=== PATIENT | male | born 1950 | race Caucasian/White ===

== ENCOUNTER 2021-06-04 12:05 | Inpatient (IN) ==
[2021-06-04 12:53] LABS: Basophils # (auto) 0.01 K/uL (0-0.2); Basophils % (auto) 0.1 %; Eosinophils # (auto) 0.05 K/uL (0-0.5); Eosinophils % (auto) 0.7 %; Hematocrit (blood only) 42.1 % (42-52); Immature Granulocytes # (auto) 0.01 K/uL (0.00-0.02); Immature Granulocytes % (auto) 0.1 %; Lymphocytes # (auto) 0.71 K/uL (1.2-3.4); Lymphocytes % (auto) 9.6 %; Mean Corpuscular Hemoglobin 32.6 pg (25-34); Mean Corpuscular Hgb Conc 35.6 g/dL (32-36); Mean Corpuscular Volume 91.5 fL (80-100); Mean Platelet Volume 9.7 fL (7.4-10.4); Monocytes # (auto) 0.79 K/uL (0.11-0.59); Monocytes % (auto) 10.7 %; Neutrophils # (auto) 5.81 K/uL (1.4-6.5); Neutrophils % (auto) 78.8 %; Platelet Count 313 K/uL (130-400); RDW Coefficient of Variation 12.2 % (11.5-14.5); RDW Standard Deviation 41.2 fL (36.4-46.3); White Blood Count 7.38 K/uL (4.8-10.8)
--- NOTE | 2021-06-04 12:57 | XRay Report ---
XR chest 1V portable HISTORY: 71 years-old Male Sepsis acute sepsis COMPARISON: None TECHNIQUE: Portable AP view of the chest FINDINGS: The cardiomediastinal and hilar silhouettes are within normal limits. Mild right hemidiaphragmatic el evation. No pneumothorax, pleural effusion or overt pulmonary edema. Interstitial coarsening with ill -defined bilateral airspace opacities. Degenerative changes of the shoulders and spine. IMPRESSION: Ill-defined peripheral bilateral airspace opacities are suggestive of an infectious or in flammatory process such as viral pneumonia. ACT 112: Negative or not required by law. The above report was generated using voice recognition software. It may contain grammatical, syntax o r spelling errors. Electronically signed by: Delvin Penn M.D. 06/04/2021 12:55 PM
[2021-06-04 12:59] LABS: INR 1.2 (0.9-1.1); Partial Thromboplastin Ratio 1.4; Partial Thromboplastin Time 37.9 Seconds (21.0-31.0); Prothrombin Time 12.9 Seconds (9.0-12.0)
[2021-06-04 13:03] LABS: Troponin I 0.03 ng/ml (0-0.04)
[2021-06-04] MEDS ORDERED: SODIUM CHLORIDE 0.9% 1000ML 500 ML IV ONE (13:18)
[2021-06-04 13:25] LABS: Albumin Level 3.5 gm/dl (3.4-5.0); BUN Creatinine Ratio 29.6 (10-20); Bilirubin,Total 1.1 mg/dl (0.2-1.0); Creatinine Clr Calc Pharmacy 87.8 ml/min; Est GFR (African American) 102.9 ml/min; Est GFR (Non-African American) 88.8 ml/min; Globulin 3.4 gm/dl (2.5-4.0); Potassium 3.8 mmol/L (3.5-5.1); Total Protein 6.9 gm/dl (6.0-8.3)
[2021-06-04] MEDS ORDERED: SODIUM CHLORIDE 0.9% 1000ML 1,000 ML IV SCH (13:30)
--- NOTE | 2021-06-04 14:09 | CT Scan Report ---
CT head/brain wo con CLINICAL HISTORY: 71 years-old Male with AMS. Acutely altered mental status TECHNIQUE: Multiple axial CT images of the head were obtained without contrast. A dose lowering tech nique was utilized adhering to the principles of ALARA. CT DOSE: 614.27 mGy.cm COMPARISON: None. FINDINGS: No acute intracranial hemorrhage, midline shift, intracranial mass, hydrocephalus, territorial ischem ia or abnormal extra-axial collection. Age-related involutional changes. White matter hypodensities s uggest chronic microvascular ischemic disease. Chronic appearing lacunar infarct of the lanier radiat a right frontal lobe with extension into the superior right lentiform nucleus. Cerebral vascular calc ifications. The calvarium is intact. The mastoid air cells are clear. Minimal mucosal thickening of the paranasa l sinuses. Unremarkable soft tissues and orbits. IMPRESSION: 1. No acute intracranial abnormality. 2. Age-related involutional changes with chronic microvascular ischemic disease. 3. Chronic appearing lacunar infarcts of the basal ganglia and right frontal lobe lanier radiata. ACT 112: Negative or not required by law. The above report was generated using voice recognition software. It may contain grammatical, syntax o r spelling errors. Electronically signed by: Delvin Penn M.D. 06/04/2021 2:08 PM
[2021-06-04 14:18] LABS: Influenza A virus by PCR Negative (Neg); Influenza B virus by PCR Negative (Neg); RSV by PCR Negative (Neg)
[2021-06-04 14:32] LABS: SARS CoV2 RNA(COVID-19) InHosp POSITIVE (Negative)
[2021-06-04 16:00] LABS: Appearance Urine Clear (Clear); Bacteria Urine Automated Negative (Negative); Blood Urine Negative (Negative); Color Urine Dark Yellow; Glucose Urine UA Negative (Negative); Ketones Urine Negative (Negative); Leukocyte Esterase Urine Negative (Negative); Nitrite Urine Negative (Negative); Protein Urine Trace (Negative); RBC Urine Automated 0-4 /hpf (0-4); Specific Gravity Urine 1.031 (1.000-1.030); Urobilinogen Urine Positive (Negative); pH Urine 5.5 (4.5-7.5)
[2021-06-04 16:07] LABS: Bilirubin Urine 1+ (Negative)
--- NOTE | 2021-06-04 16:35 | History & Physical Report ---
Date of Service June 04, 2021 Assessment & Plan (1) Confusion: Plan: Ongoing for a few months per daughter. Patient says he feels "off" and fatigued, but otherwise cannot pinpoint symptoms. Ddx includes Covid-related encephalopathy vs. metabolic/nutritional encephalopathy vs. dementia vs. other. 1) Will get B1, folate, B12, other electrolytes 2) MRI brain (2) COVID-19: Plan: Unknown when infected. Family had it >2 months prior per daughter, and no known present contacts. Patient had increased cough recently and was at [facility] on 06/01. CXR indicates viral pneumonia. - Presently on room air, so does not qualify for steroids, remdesivir, or other treatments - Hold doxycycline as I do not think bacterial pneumonia is playing a role - Isolation precautions (3) Transaminitis: Plan: Mild. AST/ALT were 86/101 on admission. Consistent with a mild viral hepatitis from Covid. - Trend - Consider RUQ u/s if they rise appreciably. (4) Falls: Plan: Falls increasing over last 2 months. Per patient, no prodrome symptoms and no loss of consciousness. Simply more tripping over himself. - B12 as above - PT/OT (5) Pulmonary embolism: Plan: Confusing picture where patient reports workplace fume exposure caused a "blood clot in lungs" in 1985. Per patient, has been on ASA, dipyridamole, and statin ever since. - Continue all 3 for now (6) CVA (cerebral vascular accident): Plan: Again, unclear picture where patient reports blood clot in lungs "went to brain" and caused stroke. No records available to us. - Continue above meds (7) Depression: Plan: - Continue amitriptyline (8) DVT prophylaxis: Plan: Lovenox 40 mg SQ daily History of Present Illness Primary Care Provider: Debra Paulino MD 71yo M w/ hx of depression, PE (reportedly from fume exposure at work?), and stroke who presents with confusion and failure to thrive at home. Per the patient and daughter, he has been having an increasingly difficult time at home. For at least 1-2 months, he has been stumbling more, having trouble remember where he is and what day it is, and having a fair number of falls. Per the daughter, he has had several falls, including one about 2 months ago where he struck his head and had a large bruise over his left eye. He also admits to a few other falls at home, but denies otherwise striking his head. He denies any loss of consciousness during these falls. He does not have any prodrome (lightheadedness, dizziness, shortness of breath) before the falls, and reports they are mechanical in nature with him catching his foot when turning. He was brought in because his daughter feels his confusion is getting significantly worse. He is forgetting things like what day it is, when his birthday is, etc. Per daughter, her family had Covid several months ago. He was not known to have caught it at that time. He has been coughing more recently and went to [place] on 06/01 and was given doxycycline and Tessalon Perles for a pneumonia. Allergies Allergy/AdvReac Type Severity Reaction Status Date / Time No Known Allergies Allergy Unverified 06/04/21 14:39 Home Medications Medication Instructions Recorded Confirmed Type amitriptyline 50 mg tablet 50 mg PO DIRECTED 06/04/21 06/04/21 History aspirin 81 mg tablet,delayed 81 mg PO QAM 06/04/21 06/04/21 History release (Aspirin Low Dose) atorvastatin 40 mg tablet 40 mg PO QAM 06/04/21 06/04/21 History benzonatate 100 mg capsule 100 mg PO DIRECTED 06/04/21 06/04/21 History dipyridamole 50 mg tablet 50 mg PO DIRECTED 06/04/21 06/04/21 History doxycycline hyclate 100 mg capsule 100 mg PO DIRECTED 06/04/21 06/04/21 History Past Med/Surg History Medical History Depression Pulmonary embolism In 1985 due to workplace fume exopsure? Family History Father Heart disease Social History Smoking Status: Never smoker Feels Safe at Home: Yes Review of Systems Review of Systems: All systems reviewed & are unremarkable except as noted in HPI & below Physical Exam Constitutional: WD/WN, vitals as above Eyes: EOM intact bilaterally; no conjunctival abnormality ENMT: external ear and nose normal, oropharynx normal Neck: trachea midline, no thyromegaly normal visual inspection Respiratory: normal respiratory effort, lungs clear to auscultation no respiratory distress Cardiovascular: RRR, no murmur, no edema Gastrointestinal (Abdomen): Inspection/Auscultation: abdomen normal to inspection; abdomen not distended Musculoskeletal: no cyanosis or clubbing, extremities motor strength 5/5 Skin: no rashes, warm and dry Neurologic: moves all extremities and awake Motor/Sensory: no tremor, normal movement, no fasciculations and no sensory deficit (Light touch intact) Psychiatric: Orientation: alert, oriented to person and cooperative Results & Data Results & Data ([facility]) Vital Signs (Past 12 Hours) Vital Signs Temp Pulse Pulse Resp BP BP Pulse Ox 06/04/21 15:42 78 20 152/78 H 94 06/04/21 12:30 79 20 133/79 98 06/04/21 12:07 36.5 C 91 H 18 123/72 94 Code Status & VTE Plan VTE Prophylaxis Plan VTE Prophylaxis will be ordered: Yes PG Care Time/CCT Total # of Minutes Spent Total Time Spent with Patient: Total time spent is greater than 50% in coordination of care (as documented) at patient's floor/unit and/or counseling patient: Coding Level of Care Code 72808 Initial Inpt Care Lvl 3 Diagnoses Confusion R41.0 COVID-19 U07.1 Falls W19.XXXA CVA (cerebral vascular accident) I63.9 Pulmonary embolism I26.99 Depression F32.A DVT prophylaxis Z29.9 Transaminitis R74.01
[2021-06-04 17:49] LABS: Folate (Folic Acid) 11.39 ng/ml (>5.38)
[2021-06-04] MEDS ORDERED: ACETAMINOPHEN 325 MG TAB PO PRN (19:50)
[2021-06-04] MEDS ORDERED: ONDANSETRON INJ 2 MG/ML 2 ML VIAL IV PRN (19:50)
--- NOTE | 2021-06-04 20:40 | Emergency Department Note ---
Impression & Plan Confusion, COVID-19, Acute dehydration ED Provider Note CHIEF COMPLAINT: Fatigue, periodic confusion, weakness HISTORY OF PRESENT ILLNESS: This 71-year-old male patient presents to the emergency department presents emergency department with complaints of fatigue, weakness and periodic confusion per his daughter. He has been in bed for the last several days but states symptoms began several weeks ago. Daughter states today is his birthday and he has asked several times why people were singing happy birthday to him. Daughter states she brought him a strawberry milkshake as requested and he asked if it was chocolate. She thought this was unusual. This is not his baseline mental status. Patient is not Covid vaccinated. Several people in his home did have an upper respiratory infection few weeks ago. Patient denies any fevers, vomiting but states he is just not feeling right. His physician is at the [facility] and his primary hospital is at [facility]. REVIEW OF SYSTEMS: A review of systems was performed with positives and pertinent negatives listed in the history of present illness. 10 systems were reviewed and are otherwise negative. ALLERGIES: see below MEDICATIONS: see below PMH: see below SOCIAL HISTORY: see below DDx: Infection, dehydration, metabolic abnormality, hypo/hyperglycemia, electrolyte disturbance, anemia, hypoxia, cardiac sources, intracerebral event, toxicologic, neurologic, as well as other pathologies. PHYSICAL EXAM: Vital signs reviewed. General: somewhat ill appearing 71 yo male, in no significant distress. HEENT: No scleral icterus, PERRLA, neck supple. Dry mucous membranes. Cardiovascular: Regular rate and rhythm, no extra sounds. Pulmonary: Clear to auscultation bilaterally, normal work of breathing. Abdomen: Soft, nontender, nondistended, positive bowel sounds. Musculoskeletal: Atraumatic, no peripheral edema. Neurologic: Patient awake alert and answering questions appropriately. Somewhat slower to respond. Skin: Warm, dry, no rash EMERGENCY DEPARTMENT COURSE/MDM: This patient was evaluated and appeared to be in no significant distress. IV access was obtained and laboratory work was drawn. Patient was placed on potline monitor noted to be in a normal sinus rhythm. Patient is clinically dry and was hydrated with normal saline solution. Patient's laboratory work is fairly reassuring however he does have a positive Covid test. CT imaging of the head was performed and reveals chronic infarct. It is difficult to determine if the patient's presentation is consistent with a Covid fog versus subacute versus acute CVA. Patient's case was discussed with the hospitalist service who will evaluate the patient for admission and further management. MONITORING: An order for cardiac monitoring was placed and the patient is noted to be in a NSR at 79 beats per minute. RADIOLOGY: see below EKG: NSR at 91 bpm. Incomplete right bundle branch block, nonspecific ST and T wave abnormalities with poor quality baseline for interpretation. Normal QTC. No PVC, no PAC. DISPOSITION: admission Past Med/Surg History Medical History Depression Pulmonary embolism In 1985 due to workplace fume exopsure? Family History Father Heart disease Social History Smoking Status: Never smoker Hx Alcohol Use: No Hx Substance Use: No Preferred Language: Turkmen Communication Ability: Effective Meter Maintenance Person Required: No Beliefs That Will Affect Care: None Current Living Situation: Alone Feels Safe at Home: Yes Assistive Devices: Glasses Allergies Allergies Allergy/AdvReac Type Severity Reaction Status Date / Time No Known Allergies Allergy Unverified 06/04/21 14:39 Home Meds Home Medications Medication Instructions Recorded Confirmed amitriptyline 50 mg tablet 50 mg PO DIRECTED 06/04/21 06/04/21 aspirin 81 mg tablet,delayed 81 mg PO QAM 06/04/21 06/04/21 release (Aspirin Low Dose) atorvastatin 40 mg tablet 40 mg PO QAM 06/04/21 06/04/21 benzonatate 100 mg capsule 100 mg PO DIRECTED 06/04/21 06/04/21 dipyridamole 50 mg tablet 50 mg PO DIRECTED 06/04/21 06/04/21 doxycycline hyclate 100 mg capsule 100 mg PO DIRECTED 06/04/21 06/04/21 Results & Data (ED) Vital Signs Vital Signs - 24 hr 06/04/21 12:07 06/04/21 12:30 06/04/21 15:42 Temperature 36.5 C Temperature Source Temporal Artery Scan Pulse Rate 91 H Pulse Rate [Left Finger] 79 78 Pulse Rhythm [Left Finger] Regular Regular Pulse Strength [Left Finger] Normal Normal Respiratory Rate 18 20 20 Respiratory Effort / Characteristics Non-Labored Spontaneous Non-Labored Spontaneous Respiratory Depth Normal Normal Respiratory Pattern Regular Regular Blood Pressure 123/72 Blood Pressure [Left Arm] 133/79 152/78 H Blood Pressure Mean 89 Blood Pressure Mean [Left Arm] 97 102 Blood Pressure Position [Left Arm] Sitting Sitting Pulse Oximetry 94 98 94 Oxygen Delivery Method Room Air Room Air Room Air Sepsis Recent Fever Within 48 Hours No Sepsis New/Unexplained Change in Mental Status No Sepsis Action Taken by Nursing No Action Required Home Medications Current Medication List: was personally reviewed by me Laboratory Data Attestation: I reviewed the patient's lab results. Result diagrams: 06/05/21 05:18 06/05/21 05:18 Lab Results 06/04/21 06/04/21 06/04/21 Range/Units 12:25 12:25 12:25 WBC 7.38 (4.8-10.8) K/uL RBC 4.60 L (4.7-6.1) M/uL Hgb 15.0 (14.0-18.0) g/dL Hct 42.1 (42-52) % MCV 91.5 (80-100) fL MCH 32.6 (25-34) pg MCHC 35.6 (32-36) g/dL RDW Std Deviation 41.2 (36.4-46.3) fL RDW Coeff of Sobeida 12.2 (11.5-14.5) % Plt Count 313 (130-400) K/uL MPV 9.7 (7.4-10.4) fL Immature Gran % (Auto) 0.1 % Neut % (Auto) 78.8 % Lymph % (Auto) 9.6 % [place] % (Auto) 10.7 % Eos % (Auto) 0.7 % Baso % (Auto) 0.1 % Neut # (Auto) 5.81 (1.4-6.5) K/uL Lymph # (Auto) 0.71 L (1.2-3.4) K/uL [place] # (Auto) 0.79 H (0.11-0.59) K/uL Eos # (Auto) 0.05 (0-0.5) K/uL Baso # (Auto) 0.01 (0-0.2) K/uL Immature Gran # (Auto) 0.01 (0.00-0.02) K/uL PT 12.9 H (9.0-12.0) Seconds INR 1.2 H (0.9-1.1) APTT 37.9 H (21.0-31.0) Seconds PTT Ratio 1.4 Sodium 139 (136-145) mmol/L Potassium 3.8 (3.5-5.1) mmol/L Chloride 104 (98-107) mmol/L Carbon Dioxide 26 (21-32) mmol/L Anion Gap 9 (3-11) BUN 24 H (6-23) mg/dl Creatinine 0.81 (0.6-1.4) mg/dl Est Cr Clr Drug Dosing 87.8 ml/min Est GFR ( Amer) 102.9 ml/min Est GFR (Non-Af Amer) 88.8 ml/min BUN/Creatinine Ratio 29.6 H (10-20) Glucose 130 H (70-99(Fasting)) mg/dl Lactate (0.4-2.0) mmol/L Calcium 9.0 (8.5-10.1) mg/dl Magnesium 2.0 (1.7-2.4) mg/dl Total Bilirubin 1.1 H (0.2-1.0) mg/dl AST 86 H (13-39) U/L ALT 101 H (7-52) U/L Alkaline Phosphatase 71 (34-104) U/L Ammonia (18-72) umol/L Total Creatine Kinase (30-223) U/L Troponin I 0.03 (0-0.04) ng/ml Total Protein 6.9 (6.0-8.3) gm/dl Albumin 3.5 (3.4-5.0) gm/dl Globulin 3.4 (2.5-4.0) gm/dl Albumin/Globulin Ratio 1.0 (0.9-2) Vitamin B12 (180-914) pg/ml Folate (>5.38) ng/ml Urine Color Urine Appearance (Clear) Urine pH (4.5-7.5) Ur Specific [place] (1.000-1.030) Urine Protein (Negative) Urine Glucose (UA) (Negative) Urine Ketones (Negative) Urine Blood (Negative) Urine Nitrite (Negative) Urine Bilirubin (Negative) Urine Urobilinogen (Negative) Ur Leukocyte Esterase (Negative) Urine WBC (Auto) (0-5) /hpf Urine RBC (Auto) (0-4) /hpf U Hyaline Cast (Auto) (0-5) /lpf U Epithel Cells (Auto) (0-5) /lpf Urine Bacteria (Auto) (Negative) SARS-CoV-2 (PCR) (Negative) Influenza Type A (PCR) (Neg) Influenza Type B (PCR) (Neg) RSV (RT-PCR) (Neg) 06/04/21 06/04/21 06/04/21 Range/Units 12:25 12:25 13:30 WBC (4.8-10.8) K/uL RBC (4.7-6.1) M/uL Hgb (14.0-18.0) g/dL Hct (42-52) % MCV (80-100) fL MCH (25-34) pg MCHC (32-36) g/dL RDW Std Deviation (36.4-46.3) fL RDW Coeff of Sobeida (11.5-14.5) % Plt Count (130-400) K/uL MPV (7.4-10.4) fL Immature Gran % (Auto) % Neut % (Auto) % Lymph % (Auto) % [place] % (Auto) % Eos % (Auto) % Baso % (Auto) % Neut # (Auto) (1.4-6.5) K/uL Lymph # (Auto) (1.2-3.4) K/uL [place] # (Auto) (0.11-0.59) K/uL Eos # (Auto) (0-0.5) K/uL Baso # (Auto) (0-0.2) K/uL Immature Gran # (Auto) (0.00-0.02) K/uL PT (9.0-12.0) Seconds INR (0.9-1.1) APTT (21.0-31.0) Seconds PTT Ratio Sodium (136-145) mmol/L Potassium (3.5-5.1) mmol/L Chloride (98-107) mmol/L Carbon Dioxide (21-32) mmol/L Anion Gap (3-11) BUN (6-23) mg/dl Creatinine (0.6-1.4) mg/dl Est Cr Clr Drug Dosing ml/min Est GFR ( Amer) ml/min Est GFR (Non-Af Amer) ml/min BUN/Creatinine Ratio (10-20) Glucose (70-99(Fasting)) mg/dl Lactate (0.4-2.0) mmol/L Calcium (8.5-10.1) mg/dl Magnesium (1.7-2.4) mg/dl Total Bilirubin (0.2-1.0) mg/dl AST (13-39) U/L ALT (7-52) U/L Alkaline Phosphatase (34-104) U/L Ammonia 28.0 (18-72) umol/L Total Creatine Kinase 96 (30-223) U/L Troponin I (0-0.04) ng/ml Total Protein (6.0-8.3) gm/dl Albumin (3.4-5.0) gm/dl Globulin (2.5-4.0) gm/dl Albumin/Globulin Ratio (0.9-2) Vitamin B12 348 (180-914) pg/ml Folate 11.39 (>5.38) ng/ml Urine Color Urine Appearance (Clear) Urine pH (4.5-7.5) Ur Specific [place] (1.000-1.030) Urine Protein (Negative) Urine Glucose (UA) (Negative) Urine Ketones (Negative) Urine Blood (Negative) Urine Nitrite (Negative) Urine Bilirubin (Negative) Urine Urobilinogen (Negative) Ur Leukocyte Esterase (Negative) Urine WBC (Auto) (0-5) /hpf Urine RBC (Auto) (0-4) /hpf U Hyaline Cast (Auto) (0-5) /lpf U Epithel Cells (Auto) (0-5) /lpf Urine Bacteria (Auto) (Negative) SARS-CoV-2 (PCR) (Negative) Influenza Type A (PCR) (Neg) Influenza Type B (PCR) (Neg) RSV (RT-PCR) (Neg) 06/04/21 06/04/21 06/04/21 Range/Units 13:30 13:30 15:00 WBC (4.8-10.8) K/uL RBC (4.7-6.1) M/uL Hgb (14.0-18.0) g/dL Hct (42-52) % MCV (80-100) fL MCH (25-34) pg MCHC (32-36) g/dL RDW Std Deviation (36.4-46.3) fL RDW Coeff of Sobeida (11.5-14.5) % Plt Count (130-400) K/uL MPV (7.4-10.4) fL Immature Gran % (Auto) % Neut % (Auto) % Lymph % (Auto) % [place] % (Auto) % Eos % (Auto) % Baso % (Auto) % Neut # (Auto) (1.4-6.5) K/uL Lymph # (Auto) (1.2-3.4) K/uL [place] # (Auto) (0.11-0.59) K/uL Eos # (Auto) (0-0.5) K/uL Baso # (Auto) (0-0.2) K/uL Immature Gran # (Auto) (0.00-0.02) K/uL PT (9.0-12.0) Seconds INR (0.9-1.1) APTT (21.0-31.0) Seconds PTT Ratio Sodium (136-145) mmol/L Potassium (3.5-5.1) mmol/L Chloride (98-107) mmol/L Carbon Dioxide (21-32) mmol/L Anion Gap (3-11) BUN (6-23) mg/dl Creatinine (0.6-1.4) mg/dl Est Cr Clr Drug Dosing ml/min Est GFR ( Amer) ml/min Est GFR (Non-Af Amer) ml/min BUN/Creatinine Ratio (10-20) Glucose (70-99(Fasting)) mg/dl Lactate 1.0 (0.4-2.0) mmol/L Calcium (8.5-10.1) mg/dl Magnesium (1.7-2.4) mg/dl Total Bilirubin (0.2-1.0) mg/dl AST (13-39) U/L ALT (7-52) U/L Alkaline Phosphatase (34-104) U/L Ammonia (18-72) umol/L Total Creatine Kinase (30-223) U/L Troponin I (0-0.04) ng/ml Total Protein (6.0-8.3) gm/dl Albumin (3.4-5.0) gm/dl Globulin (2.5-4.0) gm/dl Albumin/Globulin Ratio (0.9-2) Vitamin B12 (180-914) pg/ml Folate (>5.38) ng/ml Urine Color Dark Yellow Urine Appearance Clear (Clear) Urine pH 5.5 (4.5-7.5) Ur Specific [place] 1.031 H (1.000-1.030) Urine Protein Trace H (Negative) Urine Glucose (UA) Negative (Negative) Urine Ketones Negative (Negative) Urine Blood Negative (Negative) Urine Nitrite Negative (Negative) Urine Bilirubin 1+ H (Negative) Urine Urobilinogen Positive H (Negative) Ur Leukocyte Esterase Negative (Negative) Urine WBC (Auto) 1-5 (0-5) /hpf Urine RBC (Auto) 0-4 (0-4) /hpf U Hyaline Cast (Auto) 10-30 H (0-5) /lpf U Epithel Cells (Auto) 10-20 H (0-5) /lpf Urine Bacteria (Auto) Negative (Negative) SARS-CoV-2 (PCR) POSITIVE A* (Negative) Influenza Type A (PCR) Negative (Neg) Influenza Type B (PCR) Negative (Neg) RSV (RT-PCR) Negative (Neg) Administered Medications Amitriptyline HCl (Amitriptyline Hcl 50 Mg Tab) 50 mg PO HS [facility] Stop: 07/04/21 20:59 Last Admin: 06/04/21 22:41 Dose: 50 mg Documented by: [id number] Aspirin (Aspirin 81 Mg Ectab) [facility] Stop: 07/05/21 08:59 Last Admin: 06/05/21 07:56 Dose: 81 mg Documented by: [id number] Atorvastatin Calcium (Atorvastatin 40 Mg Tab) 40 mg PO QAM [facility] Stop: 07/05/21 08:59 Last Admin: 06/05/21 07:55 Dose: 40 mg Documented by: [id number] Dipyridamole (Dipyridamole 25 Mg Tab) 100 mg PO TID [facility] Stop: 07/04/21 20:59 Last Admin: 06/05/21 07:55 Dose: 100 mg Documented by: [id number] Admin: 06/04/21 22:41 Dose: 100 mg Documented by: [id number] Enoxaparin Sodium (Enoxaparin Inj 40 Mg/0.4 Ml Syr) 40 mg SQ Q24H [facility] Stop: 07/05/21 08:59 Last Admin: 06/05/21 07:56 Dose: 40 mg Documented by: [id number] Lactated Ringer's (Lr) 1,000 mls @ 80 mls/hr IV .[id number] [facility] Stop: 07/04/21 19:49 Last Admin: 06/05/21 09:28 Dose: 80 mls/hr Documented by: [id number] Infusion: 06/05/21 09:28 Dose: 80 mls/hr Documented by: [id number] Admin: 06/04/21 22:39 Dose: 80 mls/hr Documented by: [id number] Thiamine HCl (Thiamine Hcl 100 Mg Tab) 100 mg PO QAM [facility] Stop: 07/05/21 08:59 Last Admin: 06/05/21 07:55 Dose: 100 mg Documented by: [id number] Discontinued Medications Sodium Chloride (Nss 1000ml) 500 mls @ 999 mls/hr IV .Q31M ONE Stop: 06/04/21 13:48 Last Infusion: 06/04/21 15:17 Dose: 0 mls/hr Documented by: [id number] Admin: 06/04/21 13:29 Dose: 999 mls/hr Documented by: [id number] Sodium Chloride (Nss 1000ml) 1,000 mls @ 150 mls/hr IV .[id number] [facility] Stop: 07/04/21 13:29 Last Infusion: 06/05/21 03:59 Dose: 0 mls/hr Documented by: [id number] Admin: 06/04/21 13:29 Dose: 150 mls/hr Documented by: [id number] Imaging Data Radiologist's Impression: Chest X-Ray 06/04/21 12:20 XR chest 1V portable HISTORY: 71 years-old Male Sepsis acute sepsis COMPARISON: None TECHNIQUE: Portable AP view of the chest FINDINGS: The cardiomediastinal and hilar silhouettes are within normal limits. Mild right hemidiaphragmatic elevation. No pneumothorax, pleural effusion or overt pulmonary edema. Interstitial coarsening with ill-defined bilateral airspace opacities. Degenerative changes of the shoulders and spine. IMPRESSION: Ill-defined peripheral bilateral airspace opacities are suggestive of an infectious or inflammatory process such as viral pneumonia. ACT 112: Negative or not required by law. The above report was generated using voice recognition software. It may contain grammatical, syntax or spelling errors. Electronically signed by: Delvin Penn M.D. 06/04/2021 12:[address] 06/04/21 13:18 CT head/brain wo con CLINICAL HISTORY: 71 years-old Male with AMS. Acutely altered mental status TECHNIQUE: Multiple axial CT images of the head were obtained without contrast. A dose lowering technique was utilized adhering to the principles of ALARA. CT DOSE: 614.27 mGy.cm COMPARISON: None. FINDINGS: No acute intracranial hemorrhage, midline shift, intracranial mass, hydrocephalus, territorial ischemia or abnormal extra-axial collection. Age- related involutional changes. White matter hypodensities suggest chronic microv ascular ischemic disease. Chronic appearing lacunar infarct of the lanier radiata right frontal lobe with extension into the superior right lentiform nucleus. Cerebral vascular calcifications. The calvarium is intact. The mastoid air cells are clear. Minimal mucosal thickening of the paranasal sinuses. Unremarkable soft tissues and orbits. IMPRESSION: 1. No acute intracranial abnormality. 2. Age-related involutional changes with chronic microvascular ischemic disease. 3. Chronic appearing lacunar infarcts of the basal ganglia and right frontal lobe lanier radiata. ACT 112: Negative or not required by law. The above report was generated using voice recognition software. It may contain grammatical, syntax or spelling errors. Electronically signed by: Delvin Penn M.D. 06/04/2021 2:08 PM Blood Pressure Blood Pressure Findings: Normal blood pressure Blood Pressure Disposition: did not require urgent referral Discharge Plan Visit Data Chief Complaint: Dehydration Stated Complaint: PNUEMONIA, DISORIENTED, CONFUSION, FATIGUE ED Provider: Rosita Vo Discharge Problem: Confusion, COVID-19, Acute dehydration Patient Disposition: Admitted As Inpatient Discharge Instructions Interventions: ED Discharge Assessment Last Done: 06/04/21 19:14
--- NOTE | 2021-06-04 21:29 | XRay Report ---
BONY ORBITS 3 VIEWS CLINICAL HISTORY: MRI clearance. FINDINGS: 3 views of the bony orbits are obtained. No prior studies are available for comparison at t he time of dictation. There is no radiodense/metallic foreign body seen in the region of the bony orb its. The bony orbits are intact as imaged. The visualized paranasal sinuses and the mastoid air cells appear clear. The imaged calvarium appears intact. IMPRESSION: There is no radiodense/metallic foreign body seen in the region of the bony orbits. ACT 112: Negative or not required by law. Electronically signed by: Andres Wen M.D. 06/04/2021 9:28 PM
[2021-06-04] MEDS: LACTATED RINGER'S 1,000 ML IV SCH (22:39)
--- NOTE | 2021-06-04 22:40 | Electrocardiogram Report ---
Test Reason : Blood Pressure : / mmHG Vent. Rate : 091 BPM Atrial Rate : 091 BPM P-R Int : 172 ms QRS Dur : 092 ms QT Int : 372 ms P-R-T Axes : 045 063 000 degrees QTc Int : 457 ms Poor data quality, interpretation may be adversely affected Normal sinus rhythm Incomplete right bundle branch block Nonspecific ST and T wave abnormality Abnormal ECG No previous ECGs available Confirmed by Venancio Henderson ([id number]) on 06/04/2021 10:39:42 PM Referred By: Confirmed By:Venancio Henderson
[2021-06-04] MEDS: DIPYRIDAMOLE 25 MG TAB PO SCH (22:41)
[2021-06-04] MEDS: AMITRIPTYLINE HCL 50 MG TAB PO SCH (22:41)
--- NOTE | 2021-06-05 00:15 | Magnetic Resonance Report ---
MRI OF THE BRAIN WITHOUT IV CONTRAST CLINICAL HISTORY: Change in mental status. COMPARISON STUDY: CT of the brain dated 06/04/2021. TECHNIQUE: MRI of the brain was performed utilizing various T1 and T2-weighted sequences in the axial , sagittal, and coronal planes. IV contrast was not administered for this examination. FINDINGS: Brain parenchyma: There is age-related involutional change noting advanced confluent subcortical and periventricular microangiopathic disease. A chronic lacunar infarct versus perivascular space is agai n noted in the right basal ganglia. There is a small chronic infarct in the right occipital lobe. The re is no hemorrhage or mass effect. There is no restricted diffusion to suggest acute ischemia. Colmenares- white matter differentiation is preserved. No extra-axial fluid collection is seen. The cerebellar to nsils are normal in configuration. Ventricles, sulci, and cisterns: Prominent secondary to involutional change. Pituitary and sella: Unremarkable. Intracranial vasculature: Normal flow voids are maintained at the skull base. Orbits: The bony orbits are grossly intact. Orbital contents are normal in appearance. Sinuses and mastoids: There is trace mucosal thickening within the right maxillary antrum in the righ t frontal sinus. The remaining paranasal sinuses are clear. The mastoid air cells are well pneumatize d. Calvarium: Unremarkable. Cervical cord: Partially visualized cervical spinal cord is normal in morphology and signal intensity . IMPRESSION: No acute intracranial abnormality. ACT 112: Negative or not required by law. Electronically signed by: Andres Wen M.D. 06/05/2021 12:14 AM
[2021-06-05 05:45] LABS: Hematocrit (blood only) 35.6 % (42-52); Hemoglobin 12.4 g/dL (14.0-18.0); Mean Corpuscular Hemoglobin 32.4 pg (25-34); Mean Corpuscular Hgb Conc 34.8 g/dL (32-36); Mean Platelet Volume 9.7 fL (7.4-10.4); Platelet Count 296 K/uL (130-400); RDW Coefficient of Variation 12.3 % (11.5-14.5); RDW Standard Deviation 41.8 fL (36.4-46.3); Red Blood Count 3.83 M/uL (4.7-6.1); White Blood Count 6.04 K/uL (4.8-10.8)
[2021-06-05 06:05] LABS: Albumin Level 2.9 gm/dl (3.4-5.0); Bilirubin,Total 0.9 mg/dl (0.2-1.0); Calcium 8.1 mg/dl (8.5-10.1); Creatinine Clr Calc Pharmacy 101.6 ml/min; Est GFR (African American) 109.3 ml/min; Est GFR (Non-African American) 94.3 ml/min; Magnesium 1.8 mg/dl (1.7-2.4); Phosphorus 2.7 mg/dl (2.5-4.9); Potassium 3.7 mmol/L (3.5-5.1); Total Protein 5.9 gm/dl (6.0-8.3)
[2021-06-05] MEDS: DIPYRIDAMOLE 25 MG TAB PO SCH ×3 (07:55→21:28)
[2021-06-05] MEDS: ATORVASTATIN 40 MG TAB PO SCH (07:55)
[2021-06-05] MEDS: THIAMINE HCL 100 MG TAB PO SCH (07:55)
[2021-06-05] MEDS: ENOXAPARIN INJ 40 MG/0.4 ML SYR SQ SCH (07:56)
[2021-06-05] MEDS: ASPIRIN 81 MG ECTAB PO SCH (07:56)
[2021-06-05] MEDS: LACTATED RINGER'S 1,000 ML IV SCH (09:28)
--- NOTE | 2021-06-05 14:38 | Hospitalist Progress Note ---
Date of Service June 05, 2021 Assessment & Plan (1) Confusion: Plan: Suspect underlying chronic cognitive decline/dementia acutely worsened in the setting of Covid - Patients mother and father with age related dementia, much more prominent in pts mother Patient is Covid positive, develop symptoms for a day or 2 and then [facility] CXR Ill-defined peripheral bilateral airspace opacities are suggestive of an infectious or inflammatory process such as viral pneumonia. Covid treatment as below B12 normal, folate levels normal. B1 pending Continue thiamine 100 mg daily (2) COVID-19: Plan: Unknown when infected. Family had it >2 months prior per daughter, and no known present contacts. [facility] had increased cough recently [facility] CXR indicates viral pneumonia. Covid positive 06/01 First day of symptoms: 1-2 days prior Vaccination status: Unvaccinated Baseline kidney function: Normal Admitting kidney function: 0.70, creatinine clearance 101 AST/ALT: 78/90 consistent with Covid mild transaminitis/hepatitis CXR: Ill-defined peripheral bilateral airspace opacities are suggestive of an infectious or inflammatory process such as viral pneumonia. Not hypoxic, steroids, supplemental oxygen, baricitinib/tocilizumab not indicated at time of admission (3) CVA (cerebral vascular accident): Plan: Again, unclear picture where patient reports blood clot in lungs "went to brain" and caused stroke. No records available to us. - Continue above meds MRI: No acute abnormalities. Age-related involutional change with microvascular disease. Chronic lacunar infarct noted in the right basal ganglia, chronic infarct in right occipital lobe. No acute ischemia. CThead: Chronic appearing lacunar infarct of basal ganglia/right frontal rule. No acute abnormalities Patient denies a history of hypertension, still anxious with 1 measurement 163/77 today but otherwise has had good blood pressure control without antihypertensives with measurements as low as 114/61. Would follow blood pressure yearly here, and have blood pressure checks after discharge and if persistently hypertensive then add medication at that time for stroke prevention Patient is on aspirin/dipyridamole at this time. Could continue to switch to aspirin/Plavix, however his above strokes could be the initial stroke he was diagnosed with. Will defer for now Lipid panel pending, continue atorvastatin 40 mg daily consider increase to 80 based on lipid panel (4) Transaminitis: Plan: Mild. AST/ALT were 86/101 on admission. Consistent with a mild viral hepatitis from Covid. - Trend. Downtrending 06/05 - Consider RUQ u/s if they rise appreciably. (5) Falls: Plan: Falls increasing over last 2 months. Per patient, no prodrome symptoms and no loss of consciousness. Simply more tripping over himself. - B12 as above - PT/OT (6) Pulmonary embolism: Plan: Confusing picture where patient reports workplace fume exposure caused a "blood clot in lungs" in 1985. Per patient, has been on ASA, dipyridamole, and statin ever since. - Continue all 3 for now Reviewed with patient, he is a poor historian of this. See CVA. No evidence of DVT/PE at this time (7) Depression: Plan: - Continue amitriptyline (8) DVT prophylaxis: Plan: Lovenox 40 mg SQ daily Admission and Anticipated Discharge Date Admission Date: June 04, 2021 Subjective Seen at bedside this morning. Patient is somewhat forgetful, does not remember what he had for breakfast but is oriented to place, and name. Does describe a history of having a blood clot in his lung which travels to his brain, is not sure of the details of this but notes he is on 2 medications for. Does not remember the names of his medications, just reports that he takes the medications that are prescribed to him. To discuss his care with his daughter, she reports that he has had some progressive memory and cognitive decline over weeks/months, and there have been concerns for dementia as both his mother and father had dementia and a couple other blood relatives around his age. No alcohol use, no tobacco use, no substance use. Patient has had Covid symptoms for 8 or 9 days and was Covid positive, acute weakness worsened likely in the setting of Covid. Review of Systems Review of Systems: All systems reviewed & are unremarkable except as noted in Subjective Physical Exam Physical Exam: General: Oriented to name and place. NAD. Cooperative. HEENT: Atraumatic, normocephalic. Dual acuity and hearing grossly intact Pulm: CTAB A&P. -wheezes, -rales, -rhonchi. Symmetrical chest rise. No increased work of breathing. No respiratory distress. Cardiac: RRR, -mrg. Radial pulses intact and symmetrical. Abdominal: Nontender, nondistended, soft. BS present. Extremities: Estate Manager strength, ankle dorsiflexion/plantar flexion, elbow flexion 4/5 bilaterally. Sensation intact in hands and feet without asymmetry. Results & Data Results & Data ([facility]) Vital Signs (Past 12 Hours) Vital Signs Temp Pulse Resp BP Pulse Ox 06/05/21 13:44 36.8 C 77 18 163/77 H 94 06/05/21 07:12 36.9 C 72 18 126/65 90 06/05/21 02:56 36.7 C 76 18 114/61 93 PG Care Time/CCT Total # of Minutes Spent Total Time Spent with Patient: Total time spent is greater than 50% in coordination of care (as documented) at patient's floor/unit and/or counseling patient: Coding Level of Care Code 08608 Subseq Hosp Care Lvl 2 Diagnoses Confusion R41.0 COVID-19 U07.1 Transaminitis R74.01 Falls W19.XXXA Pulmonary embolism I26.99 CVA (cerebral vascular accident) I63.9 Depression F32.A DVT prophylaxis Z29.9
[2021-06-05 15:30] LABS: Chol HDL Ratio 4.2 (0-5)
[2021-06-05] MEDS: AMITRIPTYLINE HCL 50 MG TAB PO SCH (21:29)
[2021-06-06 07:54] LABS: Basophils # (auto) 0.02 K/uL (0-0.2); Basophils % (auto) 0.4 %; Eosinophils % (auto) 1.9 %; Hematocrit (blood only) 35.8 % (42-52); Hemoglobin 12.4 g/dL (14.0-18.0); Immature Granulocytes # (auto) 0.01 K/uL (0.00-0.02); Immature Granulocytes % (auto) 0.2 %; Lymphocytes # (auto) 0.97 K/uL (1.2-3.4); Lymphocytes % (auto) 18.2 %; Mean Corpuscular Hemoglobin 32.5 pg (25-34); Mean Corpuscular Hgb Conc 34.6 g/dL (32-36); Mean Platelet Volume 9.4 fL (7.4-10.4); Monocytes # (auto) 0.65 K/uL (0.11-0.59); Monocytes % (auto) 12.2 %; Neutrophils # (auto) 3.58 K/uL (1.4-6.5); Neutrophils % (auto) 67.1 %; Platelet Count 267 K/uL (130-400); RDW Coefficient of Variation 12.2 % (11.5-14.5); RDW Standard Deviation 41.3 fL (36.4-46.3); Red Blood Count 3.81 M/uL (4.7-6.1); White Blood Count 5.33 K/uL (4.8-10.8)
[2021-06-06 08:16] LABS: Albumin Globulin Ratio 0.9 (0.9-2); Albumin Level 2.8 gm/dl (3.4-5.0); BUN Creatinine Ratio 24.7 (10-20); Bilirubin,Total 0.7 mg/dl (0.2-1.0); Calcium 8.4 mg/dl (8.5-10.1); Creatinine Clr Calc Pharmacy 87.8 ml/min; Est GFR (African American) 102.9 ml/min; Est GFR (Non-African American) 88.8 ml/min; Globulin 3.1 gm/dl (2.5-4.0); Potassium 3.9 mmol/L (3.5-5.1); Total Protein 5.9 gm/dl (6.0-8.3)
[2021-06-06] MEDS: ASPIRIN 81 MG ECTAB PO SCH (08:20)
[2021-06-06] MEDS: THIAMINE HCL 100 MG TAB PO SCH (08:20)
[2021-06-06] MEDS: ENOXAPARIN INJ 40 MG/0.4 ML SYR SQ SCH (08:20)
[2021-06-06] MEDS: ATORVASTATIN 40 MG TAB PO SCH (08:20)
[2021-06-06] MEDS: DIPYRIDAMOLE 25 MG TAB PO SCH ×2 (08:20→11:34)
--- NOTE | 2021-06-06 15:57 | Discharge Summary ---
Date of Service June 06, 2021 Admission HPI Per Admitting Provider 71yo M w/ hx of depression, PE (reportedly from fume exposure at work?), and stroke who presents with confusion and failure to thrive at home. Per the patient and daughter, he has been having an increasingly difficult time at home. For at least 1-2 months, he has been stumbling more, having trouble remember where he is and what day it is, and having a fair number of falls. Per the daughter, he has had several falls, including one about 2 months ago where he struck his head and had a large bruise over his left eye. He also admits to a few other falls at home, but denies otherwise striking his head. He denies any loss of consciousness during these falls. He does not have any prodrome (lightheadedness, dizziness, shortness of breath) before the falls, and reports they are mechanical in nature with him catching his foot when turning. He was brought in because his daughter feels his confusion is getting significantly worse. He is forgetting things like what day it is, when his birthday is, etc. Per daughter, her family had Covid several months ago. He was not known to have caught it at that time. He has been coughing more recently and went to [facility] on 06/01 and was given doxycycline and Tessalon Perles for a pneumonia. Principal Diagnosis COVID-19 positive test (U07.1, COVID-19) with Acute Pneumonia (J12.89, Other viral pneumonia) Discharge Exam General: Oriented to name, place, and year. NAD. Cooperative. HEENT: Atraumatic, normocephalic. Dual acuity and hearing grossly intact Pulm: Trace crackles in lower lobes, otherwise clear -wheezes, -rales, -rhonchi. Symmetrical chest rise. No increased work of breathing. No respiratory distress. Cardiac: RRR, -mrg. Radial pulses intact and symmetrical. Abdominal: Nontender, nondistended, soft. BS present. Extremities: Public Information Director strength, ankle dorsiflexion/plantar flexion, elbow flexion 4/5 bilaterally. Sensation intact in hands and feet without asymmetry. Discharge Data Allergies Allergy/AdvReac Type Severity Reaction Status Date / Time No Known Allergies Allergy Unverified 06/04/21 14:39 Ordered Studies 06/04/21 13:18 CT head/brain wo con Stat 06/04/21 19:50 MR brain wo con Routine Hospital Course (1) Confusion: Kannan is a 71-year-old male with a past medical history of CVA, possible PE, and rare follow-up with physicians who presented with concerns for confusion and some shortness of breath and who was found to have COVID-19 on admission. He was not hypoxic during admission, and on day of discharge was ambulating well maintaining oxygen sats greater than 90%. He does have a strong family history in both parents and siblings of dementia at his age, and has had some chronic cognitive decline in the last year. MRI showed a old/chronic lacunar stroke in the right basal ganglia and right occipital lobe with no acute/subacute stroke or signs of ischemia. Patient has been on aspirin and dipyridamole therapy with atorvastatin since his initial report of stroke, and has not had any new focal neurologic deficits. On lipid check his LDL was found to be low at 35. Discussed risk of bleed versus stroke prevention, and on shared decision making decreased his atorvastatin from 40 to 20 mg with outpatient lipid recheck by PCP as an outpatient. He was ambulating well independently on evaluation by PT, was discharged home. Given chronic cognitive decline his case was discussed extensively with patient's family/daughter with patient's permission, he will have family at home with him to assist in his care. To do as outpatient: 1. LDL noted 35 during admission. Atorvastatin decreased to 20 mg, patient should have repeat lipid profile within 4-6 weeks 2. Routine PCP follow-up within 1 week 3. Return for any new/worsening symptoms. Worsening second phase Covid discussed with patient and family, at time of discharge did have a chest x-ray consistent with Covid viral pneumonia but no oxygen requirements are no indications for further hospitalization or home oxygen. 4. Routine follow-up and stroke secondary prevention. Patient was generally normotensive/to low normotensive during admission, additional antihypertensive was not indicated during admission but should have close follow-up for blood pressure and home blood pressure measurements. This was discussed with patient and family. If patient has recurrent stroke episodes could consider switching dipyridamole to Plavix, no indication of new stroke at time of assessment Suspect underlying chronic cognitive decline/dementia acutely worsened in the setting of Covid - Patients mother and father with age related dementia, much more prominent in pts mother Patient is Covid positive, develop symptoms for a day or 2 and then was seen [facility]. CXR Ill-defined peripheral bilateral airspace opacities are suggestive of an infectious or inflammatory process such as viral pneumonia. Covid treatment as below B12 normal, folate levels normal. B1 pending Continue thiamine 100 mg daily (2) COVID-19: Unknown when infected. Family had it >2 months prior per daughter, and no known present contacts. [facility] had increased cough [facility] CXR indicates viral pneumonia. Covid positive 06/01 First day of symptoms: 1-2 days prior Vaccination status: Unvaccinated Baseline kidney function: Normal Admitting kidney function: 0.70, creatinine clearance 101 AST/ALT: 78/90 consistent with Covid mild transaminitis/hepatitis CXR: Ill-defined peripheral bilateral airspace opacities are suggestive of an infectious or inflammatory process such as viral pneumonia. Not hypoxic, steroids, supplemental oxygen, baricitinib/tocilizumab not indicated at time of admission (3) CVA (cerebral vascular accident): Again, unclear picture where patient reports blood clot in lungs "went to brain" and caused stroke. No records available to us. - Continue above [facility] MRI: No acute abnormalities. Age-related involutional change with microv ascular disease. Chronic lacunar infarct noted in the right basal ganglia, chronic infarct in right occipital lobe. No acute ischemia. CThead: Chronic appearing lacunar infarct of basal ganglia/right frontal rule. No acute abnormalities Patient denies a history of hypertension, still anxious with 1 measurement 163/77 today but otherwise has had good blood pressure control without antihypertensives with measurements as low as 114/61. Would follow blood pressure yearly here, and have blood pressure checks after discharge and if persistently hypertensive then add medication at that time for stroke prevention Patient is on aspirin/dipyridamole at this time. Could continue to switch to aspirin/Plavix, however his above strokes could be the initial stroke he was diagnosed with. Will defer for now Lipid panel with LDL 35, atorvastatin decreased from 40-20 (4) Transaminitis: Mild. AST/ALT were 86/101 on admission. Consistent with a mild viral hepatitis from Covid. - Trend. Downtrending 06/05 (5) Falls: Falls increasing over last 2 months. Per patient, no prodrome symptoms and no loss of consciousness. Simply more tripping over himself. - B12 as above - PT/OT (6) Pulmonary embolism: Confusing picture where patient reports workplace fume exposure caused a "blood clot in lungs" in 1985. Per patient, has been on ASA, dipyridamole, and statin ever since. - Continue all 3 for now Reviewed with patient, he is a poor historian of this. See CVA. No evidence of DVT/PE at this time (7) Depression: - Continue amitriptyline (8) DVT prophylaxis: Lovenox 40 mg SQ daily Total Time Total Time Spent Total Time Spent (In Minutes): Time spend day of discharge 40 minutes including direct patient care, documentation, review of labs and images, and coordination of care. Discharge Plan Discharge Items Patient Disposition: Home - Self-Care Reason For Visit: CONFUSION, FALLS Discharge Diagnosis: COVID-19 Activity: Per Instructions section Non-emergency contact: Primary Care Provider Call non-emergency contact if: your symptoms worsen Follow-up/Referrals: Debra Paulino MD [Primary Care Provider] - Diet: Regular Addtl Attending Provider Instructions: You are seen in the hospital for concerns of confusion, dehydration, and were found to have COVID-19 on admission. Your chest x-ray was consistent with Covid, you did require supplemental oxygen to keep oxygen levels greater than 90% during admission. Steroids and additional medications were not indicated at this time. Your liver enzymes were slightly increased, this can be seen in acute Covid illness. They should be followed with recheck blood work and if they do not improve additional blood work should be ordered for reevaluation. A MRI was obtained due to concern for history of stroke, confusion, and concern for symptoms. This showed evidence of old strokes, but no acute/subacute strokes or ischemia. You have been continued on your aspirin and dipyridamole. Blood pressure is an important part of preventing strokes, your blood pressure was occasionally slightly high, but mostly normal to low normal during admission. High blood pressure medication was not recommended at discharge, but you should check your blood pressure at home once a day and follow-up with your primary care physician for additional blood pressure management and notify your primary care provider if your blood pressures at home are greater than 140/80. You are on atorvastatin, which is important for reducing cholesterol and reducing stroke. Your cholesterol levels were checked and it was found that your LDL, bad cholesterol, was actually very low at 35. This can slightly increase risk of bleeding, and this risk is balanced against the benefit of moderate to high-dose statins for stroke. Was discussed with you and your daughter, and on shared decision making her atorvastatin has been decreased to 20 mg daily and you should have a recheck of your cholesterol in 4 to 6 weeks. You did not find an oxygen requirement, and were doing well from a Covid perspective. Some patients do experience a secondary phase of illness which can be serious or even life-threatening. If you have worsening shortness of breath, worsening symptoms, or are concerned please contact your primary care physician or if very concerned contact 911 for reevaluation in the emergency department. Your MRI showed evidence of small vascular disease. Small vessel disease can contribute to dementia and chronic cognitive changes over time. It is recommended to continue your aspirin and statin treatment as noted above. You should be seen by your primary care provider within 1 week. An appointment is being scheduled for you, if you do not receive a call to confirm your appointment within 48 hours please contact your PCP at the number above. If you develop any new or worsening symptoms including fever, chills, sweats, chest pain, chest pressure, difficulty breathing, uncontrolled nausea/vomiting, rash, wheezing, passing out or nearly passing out, bleeding, black/bloody bowel movements, or other new or concerning symptoms please call your primary care physician, or call 911 for re-evaluation in the emergency department if you are very concerned. Pending Studies at Discharge: No Stand-Alone Forms: My [facility] [employer], Smoking Cessation Medications and DC Order Prescriptions: New atorvastatin 20 mg tablet 20 mg PO DAILY Qty: 30 RF: 0 Continued aspirin [Aspirin Low Dose] 81 mg Tablet,Delayed Release (Dr/Ec) 81 mg PO QAM RF: 0 amitriptyline 50 mg tablet 50 mg PO DIRECTED RF: 0 benzonatate 100 mg capsule 100 mg PO DIRECTED RF: 0 dipyridamole 50 mg tablet 50 mg PO DIRECTED RF: 0 Discontinued atorvastatin 40 mg tablet 40 mg PO QAM RF: 0 doxycycline hyclate 100 mg capsule 100 mg PO DIRECTED RF: 0 Discharge Orders: Discharge Order (Routine); Ordered 06/06/21 Ordered By: Norm Martines/Other Patient Handouts: Anatomy of the Brain Admission Data Admit Date/Time: 06/04/21 16:27 Attending Provider: Norm Barfield Admit Provider: Sathya Benítez Primary Care Provider: Debra Paulino Other Interventions: Discharge Summary Assessment (RN) Last Done: 06/06/21 14:19 Coding Level of Care Code D/C DAY MANAGEMENT >30 MINS Diagnoses Confusion R41.0 COVID-19 U07.1 CVA (cerebral vascular accident) I63.9 Transaminitis R74.01 Falls W19.XXXA Pulmonary embolism I26.99 Depression F32.A DVT prophylaxis Z29.9
== END 2021-06-06 15:22 | disposition home or self-care (01) | DRG 177 ==
LOC: ED 12:05 → SUATTDRO 16:27 → 2W 16:27